=== PATIENT | female | born 1960 | race African-American/Black ===

== ENCOUNTER 2017-01-08 12:00 | Emergency (ER) | payer BC, OTHER ==
[~2017-01-08] VITALS: Ht 160 cm; Wt 91.0 kg
[~2017-01-08 12:00] MED LIST: AMLO5 PO; LORA.5 PO
[2017-01-08 12:07] VITALS: BP 171/72; PULSE 84; RESP 16; TEMP 97.8; O2SAT 99
--- NOTE | 2017-01-08 12:17 | PD ---
HPI Chief Complaint: General Weakness Time Seen by Provider: 12:17 Travel History International Travel<30 days: No Contact w/Intl Traveler<30days: No Traveled to known affect area: No History of Present Illness HPI 56-year-old female with history of anxiety presents to the ED for evaluation of episodic weakness. The patient states that she walks around the outside of the hospital daily. She just returned from her walk, she olvin from a sitting position and she began to feel very weak, as if she might "go out." She endorses associated palpitations. She denies headache, diaphoresis, chest pain , shortness of breath, nausea, vomiting, abdominal pain, changes in bowel habits , dysuria, back pain, muscular weakness. She states that she has been experiencing similar episodes for approximately one year. She came to the ED a few months ago with the same symptoms, was found to be hypokalemic, had a cardiac workup that was negative. She thinks her symptoms might be related to menopause. She has never smoked. She endorses cardiac history in mother and maternal relatives. PFSH Past Medical History Medical other: Yes (POTASSIUM LEVEL LOW HX) Tetanus Vaccination: > 5 Years Influenza Vaccination: No ?: Not Tubal Ligation: Yes Social History Alcohol Use: No Tobacco Use: No Substance Use: No Allergies-Medications (Allergen,Severity, Reaction): Coded Allergies: No Known Allergies (Unverified , 01/08/17) Reported Meds & Prescriptions Reported Meds & Active Scripts Active No Active Prescriptions or Reported Medications Review of Systems Except as stated in HPI: all other systems reviewed are Neg Physical Exam Narrative GENERAL: Well-nourished, well-developed alert and oriented 5 black female in no acute distress. SKIN: Warm and dry. HEAD: Normocephalic. EYES: No scleral icterus. No injection or drainage. PERRLA. EOMI. NECK: Supple, trachea midline. No JVD or lymphadenopathy. CARDIOVASCULAR: Regular rate and rhythm without murmurs, gallops, or rubs. 2+ DP and radial pulses bilaterally. RESPIRATORY: Breath sounds clear and equal bilaterally. No accessory muscle use. GASTROINTESTINAL: Abdomen soft, non-tender, nondistended. Active bowel sounds. MUSCULOSKELETAL: No cyanosis, or edema. NEUROLOGICAL: Awake and alert. Cranial nerves II through XII intact. No pronator drift. Motor and sensory grossly within normal limits. 5/5 muscle strength in all muscle groups. Normal speech. BACK: Nontender without obvious deformity. No CVA tenderness. Data Data Last Documented VS Vital Signs Date Time Temp Pulse Resp B/P Pulse Ox O2 Delivery O2 Flow Rate FiO2 01/08/17 14: 97.8 76 17 138/81 99 01/08/17 13:41 Room Air Orders Electrocardiogram (01/08/17 12:26) Complete Blood Count With Diff (01/08/17 12:26) Comprehensive Metabolic Panel (01/08/17 12:26) Ckmb (Isoenzyme) Profile (01/08/17 12:26) Troponin I (01/08/17 12:26) Act Partial Throm Time (Ptt) (01/08/17 12:26) Prothrombin Time / Inr (Pt) (01/08/17 12:26) Urinalysis - C+S If Indicated (01/08/17 12:26) Blood Glucose (01/08/17 12:26) Ecg Monitoring (01/08/17 12:26) Iv Access Insert/Monitor (01/08/17 12:26) Oximetry (01/08/17 12:26) Sodium Chloride 0.9% Flush (Ns Flush) (01/08/17 12:30) Orthostatic Vital Signs (01/08/17 12:26) CKMB (01/08/17 12:30) CKMB% (01/08/17 12:30) Labs Laboratory Tests Test 01/08/17 01/08/17 12:30 12:40 White Blood Count 4.9 TH/MM3 Red Blood Count 4.10 MIL/MM3 Hemoglobin 13.2 GM/DL Hematocrit 39.5 % Mean Corpuscular Volume 96.3 FL Mean Corpuscular Hemoglobin 32.3 PG Mean Corpuscular Hemoglobin 33.5 % Concent Red Cell Distribution Width 13.4 % Platelet Count 187 TH/MM3 Mean Platelet Volume 9.4 FL Neutrophils (%) (Auto) 45.0 % Lymphocytes (%) (Auto) 41.2 % Monocytes (%) (Auto) 9.7 % Eosinophils (%) (Auto) 3.6 % Basophils (%) (Auto) 0.5 % Neutrophils # (Auto) 2.2 TH/MM3 Lymphocytes # (Auto) 2.0 TH/MM3 Monocytes # (Auto) 0.5 TH/MM3 Eosinophils # (Auto) 0.2 TH/MM3 Basophils # (Auto) 0.0 TH/MM3 CBC Comment DIFF FINAL Differential Comment Prothrombin Time 10.8 SEC Prothromb Time International 1.0 RATIO Ratio Activated Partial 25.7 SEC Thromboplast Time Sodium Level 142 MEQ/L Potassium Level 3.6 MEQ/L Chloride Level 107 MEQ/L Carbon Dioxide Level 26.0 MEQ/L Anion Gap 9 MEQ/L Blood Urea Nitrogen 15 MG/DL Creatinine 0.84 MG/DL Estimat Glomerular Filtration 85 ML/MIN Rate Random Glucose 102 MG/DL Calcium Level 9.0 MG/DL Total Bilirubin 0.4 MG/DL Aspartate Amino Transf 21 U/L (AST/SGOT) Alanine Aminotransferase 25 U/L (ALT/SGPT) Alkaline Phosphatase 56 U/L Total Creatine Kinase 248 U/L Creatine Kinase MB 2.2 NG/ML Creatine Kinase MB % 0.9 % Troponin I LESS THAN 0.02 NG/ML Total Protein 7.8 GM/DL Albumin 3.9 GM/DL Urine Color COLORLESS Urine Turbidity CLEAR Urine pH 5.5 Urine Specific [place] 1.002 Urine Protein NEG mg/dL Urine Glucose (UA) NEG mg/dL Urine Ketones NEG mg/dL Urine Occult Blood NEG Urine Nitrite NEG Urine Bilirubin NEG Urine Urobilinogen LESS THAN 2.0 MG/DL Urine Leukocyte Esterase NEG Urine WBC LESS THAN 1 /hpf Urine Squamous Epithelial <1 /hpf Cells Microscopic Urinalysis Comment CULT NOT INDICATED MDM Medical Decision Making Medical Screen Exam Complete: Yes Emergency Medical Condition: Yes Interpretation(s) Rate 72, sinus rhythm with sinus arrhythmia. IL interval 187, QRS 85, QTC 377. No ischemic changes. Similar to previous EKG 04/17/16. Reviewed by Dr. Mccauley. Differential Diagnosis Orthostatic hypotension versus cardiac arrhythmia versus electrolyte abnormality versus urinary tract infection versus less likely ACS versus less likely ICH Narrative Course 56-year-old female with history of anxiety presents to the ED for evaluation of episodic weakness. Patient states she had an episode of weakness, feeling as if she might "go out" while rising to standing from a sitting position after her daily walk. She endorses associated palpitations. She denies headache, diaphoresis, chest pain, shortness of breath, nausea, vomiting, abdominal pain, changes in bowel habits, dysuria, back pain, muscular weakness. Endorses similar symptoms for one year, thinks they may be related to menopause. She has never smoked. She endorses cardiac history in mother and maternal relatives. Patient is hypertensive on presentation but this resolves during the course of her evaluation. Physical exam reveals a nontoxic-appearing white female in no acute distress. Chest clear to auscultation bilaterally, equal pulses in the extremities, no focal neural deficits. IV was established. Patient was placed on continuous monitoring. CBC: WBC 4.9. Hemoglobin 13.2. INR 1.0. CMP: Unremarkable. UA: No culture indicated Cardiac enzymes negative EKG as above Orthostatic vitals negative Review the patient's record reveals that the patient had a similar episode in March, was found to be hypokalemic, was admitted to the hospital. She states that she had a cardiac workup and followed up with the building architectural designer and was told that her heart is "fine." I discussed the patient, workup, plan to discharge with Dr. Mccauley who agrees. I discussed the results of the workup with the patient. She was reassured by her negative workup at this time. I recommended that she follow up with her primary care provider for further investigation into these episodes. The patient again states that she feels they're related to menopause. I recommended that she follow up with her residential manager. She indicated understanding of her discharge instructions. She is amenable to plan of care. She is stable and discharged home. Diagnosis Primary Impression: Episode of generalized weakness Referrals: Primary Care Physician Patient Instructions: General Instructions, Weakness (ED) Additional Instructions: Rest, hydrate. Follow-up with your primary care provider this week. Return to the ED for any urgent or emergent medical condition. Scripts No Active Prescriptions or Reported Meds Disposition: 01 DISCHARGE HOME Condition: Stable Janeen Shine Jan 08, 2017 12:17
[2017-01-08] MEDS ORDERED: SODIUM CHLORIDE 0.9% FLUSH 5 ML FLUSH IVF PRN (12:30)
[2017-01-08 12:36] VITALS: BP_SYST 149; BP_SYST 159; BP_SYST 168; BP_DIAS 72; BP_DIAS 79; BP_DIAS 96; RESP 18
[2017-01-08 12:40] VITALS: RESP 17; O2SAT 98
[2017-01-08 13:13] LABS: AUTOMATED NEUTROPHIL # 2.2 TH/MM3 (1.8-7.7); BASOPHIL % 0.5 % (0.0-2.0); EOSINOPHIL # 0.2 TH/MM3 (0-0.4); EOSINOPHIL % 3.6 % (0.0-4.0); HEMATOCRIT 39.5 % (35.0-46.0); HEMO FLAGS DIFF FINAL; LYMPH % 41.2 % (9.0-44.0); MEAN CELL VOLUME 96.3 FL (80.0-100.0); MEAN CORPUSCULAR HEMOGLOBIN 32.3 PG (27.0-34.0); MEAN CORPUSCULAR HGB CONC 33.5 % (32.0-36.0); MONO % 9.7 % (0.0-8.0); PLATELET COUNT 187 TH/MM3 (150-450); RED CELL DISTRIBUTION WIDTH 13.4 % (11.6-17.2); WHITE BLOOD COUNT 4.9 TH/MM3 (4.0-11.0)
[2017-01-08 13:20] LABS: BLOOD, URINE NEG (NEG); GLUCOSE,URINE NEG (NEG); KETONE, URINE NEG (NEG); NITRITE,URINE NEG (NEG); PH, URINE 5.5 (5.0-8.5); SQUAMOUS EPITHELIAL CELL URINE <1 /hpf (0-5); URINE COLOR COLORLESS (YELLW/STRAW)
[2017-01-08 13:24] LABS: APTT (PATIENT) 25.7 SEC (24.3-30.1); PROTHROMBIN TIME - PATIENT 10.8 SEC (9.8-11.6)
[2017-01-08 13:28] LABS: ALT (GPT) 25 U/L (10-53); ANION GAP 9 MEQ/L (5-15); AST (GOT) 21 U/L (15-37); BLOOD UREA NITROGEN 15 MG/DL (7-18); CHLORIDE 107 MEQ/L (98-107); GLOMERULAR FILTRATION RATE 85 ML/MIN (>89); POTASSIUM 3.6 MEQ/L (3.5-5.1); SODIUM (NA) 142 MEQ/L (136-145)
[2017-01-08 13:30] LABS: COMMENT (UR) CULT NOT INDICATED; CULTURE IF INDICATED CULT NOT INDICATED
[2017-01-08 13:32] LABS: ALKALINE PHOSPHATASE 56 U/L (45-117); CREATINE KINASE 248 U/L (26-192); TOTAL BILIRUBIN ADULT 0.4 MG/DL (0.2-1.0)
[2017-01-08 13:41] VITALS: BP 144/66; PULSE 72; RESP 17; O2SAT 98
[2017-01-08 13:44] LABS: CKMB 2.2 NG/ML (0.5-3.6)
[2017-01-08 14:17] VITALS: BP 138/81; TEMP 97.8
--- NOTE | 2017-01-09 23:09 | EKG ---
Date Performed: 01/08/2017 Time Performed: 12:50:40 PTAGE: 56 years EKG: Sinus rhythm WITH SINUS ARRHYTHMIA NONSPECIFIC T-WAVE ABNORMALITY ABNORMAL ECG PREVIOUS TRACING : 04/17/2016 22.24 DOCTOR: Sheela Conner Interpretating Date/Time 01/09/2017 23:03:18
== END 2017-01-08 14:18 | disposition home or self-care (01) ==
LOC: NEPE 12:00
DX: R53.1 Weakness (principal); I49.8 Other specified cardiac arrhythmias
CPT/HCPCS: 80053; 81001; 82550; 82552; 84484; 85025; 85610; 85730; 93005

== ENCOUNTER 2017-12-04 07:29 | Emergency (ER) | payer OTHER, BC ==
[~2017-12-04] VITALS: Ht 160 cm; Wt 86.0 kg
[2017-12-04 07:31] VITALS: BP 157/94; PULSE 95; RESP 18; TEMP 98; O2SAT 97
[2017-12-04] MEDS ORDERED: KETOROLAC TROMETHAMINE 60 MG/2 ML (IM) VIAL IM ONE (08:00)
[2017-12-04] MEDS ORDERED: ORPHENADRINE INJ 60 MG/2 ML AMP IM ONE (08:00)
--- NOTE | 2017-12-04 08:50 | RADRPT ---
EXAM DATE/TIME: 12/04/2017 08:34 [facility] COMPARISON: No previous studies available for comparison. INDICATIONS : Fell landing on left shoulder pain with motion. MEDICAL HISTORY : None. SURGICAL HISTORY : None. ENCOUNTER: Initial ACUITY: 1 day PAIN SCORE: 10/10 LOCATION: Left shoulder. FINDINGS: Multiple view examination of the left shoulder demonstrates no evidence of fracture or dislocation. The glenohumeral and acromioclavicular joints are maintained. There is normal range of motion betwee n internal and external rotation. Bony mineralization is normal. CONCLUSION: No acute fracture. Stuart Garcia MD on December 04, 2017 at 8:47 Board Certified Radiologist. This report was verified electronically.
--- NOTE | 2017-12-04 08:56 | PD ---
HPI Chief Complaint: Fall Time Seen by Provider: 07:51 Travel History International Travel<30 days: No Contact w/Intl Traveler<30days: No Traveled to known affect area: No History of Present Illness HPI 57-year-old female patient presents emergency department for evaluation after falling this morning. 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 Patient is complaining of left shoulder pain at this time. Denies any midspinal cervical pain or tenderness. Full range of motion to neck with rotation, extension and flexion. Patient denies losing consciousness. Patient denies any other physiological complaints at this time. No major medical history outside of hypertension. No blood thinners. PFSH Past Medical History ?: Not Tubal Ligation: Yes Social History Alcohol Use: No Tobacco Use: No Substance Use: No Allergies-Medications (Allergen,Severity, Reaction): Coded Allergies: No Known Allergies (Unverified Adverse Reaction, Unknown, 12/04/17) Reported Meds & Prescriptions Reported Meds & Active Scripts Active No Active Prescriptions or Reported Medications Review of Systems Except as stated in HPI: all other systems reviewed are Neg Physical Exam Narrative GENERAL: Well-nourished, well-developed 57 year old female patient in no acute distress. SKIN: Focused skin assessment warm/dry. HEAD: Normocephalic. Atraumatic. NEUROLOGICAL: Awake and alert. Cranial nerves II through XII intact. Motor and sensory grossly within normal limits. Five out of 5 muscle strength in all muscle groups. Normal speech. EYES: No scleral icterus. No injection or drainage. NECK: Supple, trachea midline. No JVD or lymphadenopathy. CARDIOVASCULAR: Regular rate and rhythm without murmurs, gallops, or rubs. RESPIRATORY: Breath sounds equal bilaterally. No accessory muscle use. GASTROINTESTINAL: Abdomen soft, non-tender, nondistended. MUSCULOSKELETAL: Full range of motion to left upper extremity. Left upper extremity neurovascularly intact. No obvious deformity, ecchymosis, erythema, cyanosis, or edema. BACK: Nontender without obvious deformity. No CVA tenderness. Data Data Last Documented VS Vital Signs Date Time Temp Pulse Resp B/P (MAP) Pulse Ox O2 Delivery O2 Flow Rate FiO2 12/04/17 09:18 12/04/17 07:31 98.0 95 18 97 Room Air Orders Orders Shoulder, Complete (>2vws) (12/04/17 08:00) Ice/Cold Pack (12/04/17 08:00) Ketorolac Inj (Toradol Inj) (12/04/17 08:00) Orphenadrine Inj (Norflex Inj) (12/04/17 08:00) Ed Discharge Order (12/04/17 08:58) MDM Medical Decision Making Medical Screen Exam Complete: Yes Emergency Medical Condition: Yes Differential Diagnosis Differential diagnosis include but not limited fall, shoulder sprain, shoulder fracture, shoulder dislocation, contusion Narrative Course x-ray of the left shoulder ordered and pending. Ice applied to the left shoulder. 60 IM Toradol given. Norflex offered but patient declined for fear of feeling groggy. X-ray shows no acute fracture. Patient will be discharged home with instructions to use ice, NSAIDS or Tylenol as needed for pain and to return to the emergency department with any worsening condition but otherwise follow up with primary care. Diagnosis Primary Impression: Shoulder pain Qualified Codes: M25.512 - Pain in left shoulder Referrals: Primary Care Physician Patient Instructions: General Instructions, Shoulder Pain (ED) Additional Instructions: Please return to emergency department if your symptoms return or worsen. Follow up with your primary care provider. May take ibuprofen or Tylenol as needed for pain. May use ice as needed for pain and swelling. Scripts No Active Prescriptions or Reported Meds Disposition: 01 DISCHARGE HOME Condition: Stable Gavi Grey DANIELLE Dec 04, 2017 08:56
== END 2017-12-04 09:19 | disposition home or self-care (01) ==
LOC: NEPK 07:29
DX: M25.512 Pain in left shoulder (principal); W01.0XXA Fall on same level from slipping, tripping and stumbling without subsequent striking against object, initial encounter
CPT/HCPCS: 73030; 96372; 99284; J1885